=== PATIENT | male | born 1960 | race Caucasian/White ===

== ENCOUNTER 2022-06-16 08:27 | Outpatient (CLI) | payer BC | END 2022-06-16 08:28 | disposition home or self-care (01) | LOC: CSHMRI 08:27 | PROVIDERS: ATTEND Nurse Practitioner Adult Health | DX: M51.26 Other intervertebral disc displacement, lumbar region (principal); M47.816 Spondylosis without myelopathy or radiculopathy, lumbar region; M48.061 Spinal stenosis, lumbar region without neurogenic claudication | CPT/HCPCS: 72148 ==